=== PATIENT | male | born 1950 | race Caucasian/White ===

== ENCOUNTER 2020-12-11 11:24 | Emergency (ER) | payer MEDICARE, SELFPAY ==
--- NOTE | ~2020-12-11 | XR_ITS ---
EXAMINATION: XR shoulder LT min 2V DATE: 12/11/2020 11:48 INDICATION: Generalized left shoulder pain 4 days after using a saw. TECHNIQUE: AP internally and externally rotated, AP oblique externally rotated and axillary views of the left shoulder were obtained. COMPARISON: None FINDINGS: Normal alignment. No fracture. Mild glenohumeral and acromioclavicular osteoarthritis. Severe lower cervical spondylosis. Soft tissues are unremarkable. Visual is portions of the lungs are clear. IMPRESSION: 1. Mild left glenohumeral and acromioclavicular osteoarthritis. No acute osseous abnormality. 2. Severe lower cervical spondylosis. Reviewed, dictated and finalized at location B. IMPRESSION: 1. Mild left glenohumeral and acromioclavicular osteoarthritis. No acute osseou s abnormality. 2. Severe lower cervical spondylosis.
[2020-12-11 11:37] VITALS: BP 182/91; PULSE 61; RESP 16; TEMP 36.6; O2SAT 99
--- NOTE | 2020-12-11 11:59 | ED.UPPEXIN ---
HPI - Extremity Injury (Upper) General Chief Complaint: Extremity Injury, Upper Stated Complaint: lt shoulder injury Time Seen by Provider: 12/11/20 12:00 Source: patient, RN notes reviewed and old records reviewed Mode of arrival: ambulatory Limitations: no limitations History of Present Illness HPI narrative: 70 year old male who presents to [facility] care with complaints of severe left shoulder pain which started at 3 in the morning of Friday. Patient states that on he was holding a tree branch with his left arm and was using a chain saw with his right hand for about 2 hours cutting a limb out of tree, he cut up the wood and put it in the back yard. Patient states that he woke up with severe left shoulder pain at 3am on Friday. Patient states that he has been taking Ibuprofen and he had 5 [place] tabs left from dental procedure that he has taken for the pain and has been applying ice to his left shoulder. Patient has history of arthritis and was on Methotrexate at one time but is no longer on this medication. MD complaint: injury to: left Onset (ago): day(s) (4) Other Extremity Injury: Left: shoulder Other injuries: none Handedness: right Place: home Severity: severe Severity scale (1-10): 10 Relieving factors: other ([place] helped some) Context: other (cutting tree branch) Associated symptoms: denies other symptoms Treatments prior to arrival: cold therapy, NSAIDS and other (left over [place]) Related Data Home Medications Medication Instructions Recorded Confirmed celecoxib 100 mg capsule 100 mg PO DAILY 01/11/20 07/26/20 Allergies Allergy/AdvReac Type Severity Reaction Status Date / Time No Known Allergies Allergy Unknown Verified 12/11/20 11:37 Review of Systems Review of Systems: Narrative: CONSTITUTIONAL: Denies fever, chills, or sweats. EYES: Denies visual changes, redness, or discharge. ENT: Denies rhinorrhea, congestion, sore throat, or otalgia. CARDIOVASCULAR: Denies chest pain, palpitations, or edema. RESPIRATORY: Denies cough or dyspnea. GASTROINTESTINAL: Denies abdominal pain, nausea, vomiting, or diarrhea. GENITOURINARY: Denies dysuria or hematuria. SKIN: Positive for areas of psoriasis on body with itching. MUSCULOSKELETAL: Chronic neck and lower back pain, positive left shoulder pain. NEUROLOGIC: Denies headache, numbness, or weakness. PSYCHIATRIC: Denies anxiety or depression. All systems reviewed & are unremarkable except as noted in HPI and below PMFSH Past Medical History Medical History (Updated 12/11/20 @ 12:37 by Amelia Rothman NP) Allergies Hypertension Hypothyroidism Screening, lipid Surgical History Surgical History (Updated 12/11/20 @ 12:23 by Amelia Rothman NP) History of tonsillectomy Hx of right inguinal hernia repair S/P appy Family History Family History Mother , Age 72 from Pneumonia Arthritis Lupus Father , Age 89 Natural Causes Hypertension Grandparent , Age 95 Natural Causes Arthritis Grandparent , Age 93 Natural Causes No problems noted. Grandparent , Age 84 Natural Causes Arthritis Grandparent , Age 93 Natural Causes Arthritis Social History Social History (Updated 12/11/20 @ 12:24 by Amelia Rothman NP) Smoking status: Never smoker Alcohol intake: former Substance use: never Living arrangements: alone Gender identity (if verbalized by the patient): Male Comments At time of signature, agree with nursing past medical, surgical, social and family history. There is no relevant family history pertinent to the presenting complaint Exam Narrative: Exam Narrative: GENERAL: Well-appearing, well-nourished, and in no acute distress. HEAD: Normocephalic, atraumatic. EYES: PERRLA and EOMI. ENT: Nares clear, no rhinorrhea or epistaxis. Mucous membranes moist.
== END 2020-12-11 12:20 | disposition home or self-care (01) ==
PROVIDERS: Emergency Provider Registered Nurse; PCP Internal Medicine
DX: M25.512 Pain in left shoulder (principal); M19.012 Primary osteoarthritis, left shoulder; M47.812 Spondylosis without myelopathy or radiculopathy, cervical region; I10 Essential (primary) hypertension; E03.9 Hypothyroidism, unspecified
CPT/HCPCS: 73030; 99213; G0463

== ENCOUNTER 2022-03-20 10:16 | Outpatient (CLI) | payer MEDICARE, SELFPAY ==
[2022-03-20 10:36] LABS: Hemoglobin 13.1 g/dL (14.0-18.0); Mean Corpuscular HGB Conc 34.5 g/dl (32-36); Mean Corpuscular Volume 92.9 fl (80-100); Mean Platelet Volume 8.6 fl (7.4-10.4); Platelet Count Result 372 k/mm3 (150-375); Red Blood Count 4.09 M/mm3 (4.6-6.20); Red Cell Distribution Width 12.2 % (11.5-14.5); White Blood Count 5.9 K/mm3 (4.5-10.0)
[2022-03-20 10:55] LABS: Alanine Aminotransferase 38 U/L (6-50); Albumin Level 3.6 g/dL (3.5-5.1); Alkaline Phosphatase 93 U/L (38-126); Anion Gap 2 mmol/L (8-16); Aspartate Amino Transferase 40 U/L (17-59); Bilirubin,Total 0.3 mg/dL (0.2-1.3); Blood Urea Nitrogen 11 mg/dL (9-20); CRP < 0.5 mg/dL (<1.0); Calcium 8.6 mg/dL (8.4-10.2); Carbon Dioxide 33 mmol/L (22-30); Chloride 105 mmol/L (98-107); Estimated Glomerular Filt Rate > 60; Glucose 98 mg/dL (65-110); Potassium 3.8 mmol/L (3.4-5.0); Sodium 140 mmol/L (137-145)
[2022-03-20 11:21] LABS: Erythrocyte Sedimentation Rate 17 mm/hr (0-20)
[2022-03-21 21:31] LABS: Free T4 Free Thyroxine Reflex 1.21 ng/dL (0.78-2.19)
[2022-03-21 23:34] LABS: Total Triiodothyronine (T3) 1.07 NG/ML (0.97-1.69)
[2022-03-25 18:32] LABS: Tissue Transglutaminase IgG Ab <1.0 U/mL (<15.0)
[2022-03-25 19:42] LABS: Tissue Transglutaminase IgA Ab <1.0 U/mL (<15.0)
[2022-03-27 19:17] LABS: Calprotectin, Stool 19 mcg/g
== END 2022-03-20 10:17 | disposition home or self-care (01) ==
PROVIDERS: PCP Family Medicine; Visit Provider Nurse Practitioner
DX: R19.7 Diarrhea, unspecified (principal)
CPT/HCPCS: 36415; 80053; 83516; 83993; 84439; 84443; 84480; 85027; 85652; 86140; 87045; 87177; 87209; 87269; 87427

== ENCOUNTER 2022-03-25 08:34 | Outpatient (CLI) | payer MEDICARE, SELFPAY ==
[2022-03-25 09:36] LABS: Iron 111 ug/dL (49-181)
[2022-03-25 09:45] LABS: Percent Iron Saturation 38 % (20-50)
[2022-03-25 10:20] LABS: Folic Acid > 20.0 ng/mL (2.76->20)
== END 2022-03-25 08:35 | disposition home or self-care (01) ==
PROVIDERS: PCP Family Medicine; Visit Provider Nurse Practitioner
DX: D64.9 Anemia, unspecified (principal); R53.1 Weakness; R20.0 Anesthesia of skin
CPT/HCPCS: 36415; 82607; 82728; 82746; 83540; 83550

== ENCOUNTER 2022-04-03 09:58 | Outpatient (CLI) | payer MEDICARE, SELFPAY ==
--- NOTE | 2022-04-03 11:30 | NEURO_ITS ---
Impression: # Complains of right upper extremity pain. # No Carpal Tunnel Syndrome. # No ulnar neuropathy. # Normal needle/EMG exam. Nerve Conduction Studies Anti Sensory Summary Table Stim Site NR Peak (ms) P-T Amp (?V) Site1 Site2 Delta-P (ms) Dist (cm) Wiley (m/s) Right Median Anti Sensory (2-3nd Digit) Wrist 3.4 22.7 Wrist 2-3nd Digit 3.4 14.0 41 Wrist 3.4 22.3 Wrist 2-3nd Digit 3.4 14.0 41 Right Radial Anti Sensory (Base 1st Digit) Wrist 2.6 13.7 Wrist Base 1st Digit 2.6 0.0 Right Ulnar Anti Sensory (5th Digit) Wrist 2.6 18.8 Wrist 5th Digit 2.6 14.0 54 Motor Summary Table Stim Site NR Onset (ms) O-P Amp (mV) Site1 Site2 Delta-0 (ms) Dist (cm) Wiley (m/s) Right Median Motor (Abd Poll Brev) Wrist 3.6 2.1 Elbow Wrist 4.8 29.0 60 Elbow 8.4 3.5 Right Ulnar Motor (Abd Dig Minimi) Wrist 2.6 5.2 A Elbow Wrist 5.0 28.0 56 A Elbow 7.6 4.5 F Wave Studies NR F-Lat (ms) L-R F-Lat (ms) Right Median (Mrkrs) (Abd Poll Brev) 29.32 Right Ulnar (Mrkrs) (Abd Dig Min) 29.15 EMG Side Muscle Nerve Root Ins Act Fibs Amp Dur Recrt Comment Right 1stDorInt Ulnar C8-T1 Nml Nml Nml Nml Nml Right Ext Indicis Radial (Post Int) C7-8 Nml Nml Nml Nml Nml Right Ext Digitorum Radial (Post Int) C7-8 Nml Nml Nml Nml Nml Right BrachioRad Radial C5-6 Nml Nml Nml Nml Nml Right PronatorTeres Median C6-7 Nml Nml Nml Nml Nml Right Abd Poll Brev Median C8-T1 Nml Nml Nml Nml Nml Right ABD Dig Min Ulnar C8-T1 Nml Nml Nml Nml Nml MTDD
== END 2022-04-03 09:59 | disposition home or self-care (01) ==
LOC: ANHNEURO 09:59
PROVIDERS: PCP Family Medicine; Visit Provider Internal Medicine
DX: R53.1 Weakness (principal); R20.0 Anesthesia of skin
CPT/HCPCS: 95886; 95909

== ENCOUNTER 2022-04-29 10:33 | Outpatient (CLI) | payer MEDICARE, SELFPAY ==
[2022-04-29 11:21] LABS: Hematocrit 41.2 % (42.0-52.0); Hemoglobin 13.9 g/dL (14.0-18.0); Mean Corpuscular HGB Conc 33.7 g/dl (32-36); Mean Corpuscular Hemoglobin 32.3 pg (26-34); Mean Corpuscular Volume 95.6 fl (80-100); Mean Platelet Volume 9.3 fl (7.4-10.4); Platelet Count Result 288 k/mm3 (150-375); Red Blood Count 4.31 M/mm3 (4.6-6.20); Red Cell Distribution Width 12.5 % (11.5-14.5); White Blood Count 7.2 K/mm3 (4.5-10.0)
== END 2022-04-29 10:34 | disposition home or self-care (01) ==
PROVIDERS: PCP Family Medicine; Visit Provider Nurse Practitioner
DX: D64.9 Anemia, unspecified (principal)
CPT/HCPCS: 36415; 85027

== ENCOUNTER 2022-06-18 00:25 | Day surgery (SDC) | payer MEDICARE, SELFPAY ==
[2022-06-06 13:49] VITALS: BMI 17.4
[2022-06-18 07:35] VITALS: BP 141/83; PULSE 71; RESP 17; TEMP 36.1; O2SAT 100
[2022-06-18] MEDS: LACTATED RINGERS 1,000 ML 150 ML IV CONT (07:43)
--- NOTE | 2022-06-18 08:03 | WPDANESEPPF ---
Anes - Initial Pre Proc Eval Procedure: Operation Date: 06/18/22 08:30 Proposed Procedures p Colonoscopy - Mannie Henry MD Date/Time: 06/18/22 08:03 Surgeon: Mannie Henry MD Pre Op Diagnosis: diarrhea Patient Data Age: 72 Gender: M Height: 1.75 m Weight: 53.9 kg Last Vital Signs Temp 97 F L 06/18/22 07:35 Pulse 71 06/18/22 07:35 Resp 17 06/18/22 07:35 BP 141/83 H 06/18/22 07:35 Pulse Ox 100 06/18/22 07:35 O2 Del Method Room Air 06/18/22 07:35 Allergies Allergy/AdvReac Type Severity Reaction Status Date / Time No Known Allergies Allergy Unknown Verified 06/18/22 07:34 Home Medications Medication Instructions Recorded Confirmed Type amlodipine 10 mg tablet 10 mg PO DAILY #90 tabs 12/03/21 06/06/22 Rx sildenafil 100 mg tablet (Viagra) 100 mg PO DAILY PRN sexual 02/14/22 06/06/22 Rx activity #30 tabs gabapentin 300 mg capsule 300 mg PO DAILY #90 caps 05/21/22 06/06/22 Rx valacyclovir 1 gram tablet 1,000 mg PO BID PRN Cold Sores 06/06/22 06/06/22 History levothyroxine 100 mcg tablet 100 mcg PO DAILY #90 tabs 06/14/22 06/18/22 Rx Patient hx anesthesia problems: none Family hx anesthesia problems: none Results Review: All pre-operative results and documents have been reviewed as part of the pre-operative evaluation. [facility] Past Medical History Medical History (Updated 04/29/22 @ 10:28 by Michelle Sánchez APRN) Allergies Hypertension Hypothyroidism Lactose intolerance Normocytic anemia Normocytic anemia Screening, lipid Surgical History Surgical History History of tonsillectomy Hx of right inguinal hernia repair S/P appy Family History Family History Mother , Age 72 from Pneumonia Arthritis Lupus Father , Age 89 Natural Causes Hypertension Grandparent , Age 95 Natural Causes Arthritis Grandparent , Age 93 Natural Causes No problems noted. Grandparent , Age 84 Natural Causes Arthritis Grandparent , Age 93 Natural Causes Arthritis Social History Social History Smoking status: Never smoker Alcohol intake: former Alcohol use details: Has a beer occasionally Substance use: never Substance use type: does not use Living arrangements: alone Gender identity (if verbalized by the patient): Male Spiritual care concerns: No Anes - Eval Final PreProcedure Day of Procedure 06/18/22 08:03 Patient weight: normal Heart: regular rate and rhythm Lungs: clear to auscultation Airway: Mallampati scale class II Neurological: alert and oriented Last oral intake: >/= 8 hours ASA classification: II Emergent: no Anesthetic plan: proceed Anesthesia type and monitoring: general GIVS and standard monitoring Results Review: All pre-operative results and documents have been reviewed as part of the pre-operative evaluation. Informed Consent: The patient's anesthetic plan and its attendant risks and benefits were discussed with the patient/family/POA. Questions were solicited and answers provided to the satisfaction of the patient/family/POA.
--- NOTE | 2022-06-18 08:31 | PM.HPGS ---
History of Present Illness History of Present Illness Consent: Risks, benefits, and alternatives have been discussed and questions answered. Patient agrees to proceed with procedure. Chief complaint: diarrhea Narrative: Maikol Boston is a 72 year old male with diarrhea, briefly used budesonide empirically with some improvement, serology for celiac negative. Last colonoscopy 2013 Review of Systems Constitutional: Constitutional: Denies headache(s) and Denies weakness Eyes: Eyes: Denies blurry vision ENT: Reports Normal hearing present, Denies headache(s) and Denies neck pain Cardiovascular: Cardiovascular: Denies chest pain and Denies dyspnea Respiratory: Respiratory: Denies dyspnea Gastrointestinal: Gastrointestinal: Reports no additional gastrointestinal complaints Genitourinary: Genitourinary: Denies dysuria Musculoskeletal: Musculoskeletal: Denies neck pain Integumentary/Breasts: Skin/Breast: Denies dry skin Neurologic: Reports Normal hearing present, Denies headache(s) and Denies weakness Psychiatric: Psychiatric: Denies anxiety Endocrine: Endocrine: Denies change in body appearance Hematologic/Lymphatic: Hematologic/Lymphatic: Denies easy bleeding Allergic/Immunologic: Allergic/Immunologic: Denies urticaria PMFSH Past Medical History Medical History (Updated 06/18/22 @ 08:32 by Mannie Henry MD) Allergies Chronic diarrhea Hypertension Hypothyroidism Lactose intolerance Normocytic anemia Normocytic anemia Screening, lipid Surgical History Surgical History History of tonsillectomy Hx of right inguinal hernia repair S/P appy Family History Family History Mother , Age 72 from Pneumonia Arthritis Lupus Father , Age 89 Natural Causes Hypertension Grandparent , Age 95 Natural Causes Arthritis Grandparent , Age 93 Natural Causes No problems noted. Grandparent , Age 84 Natural Causes Arthritis Grandparent , Age 93 Natural Causes Arthritis Social History Social History Smoking status: Never smoker Alcohol intake: former Alcohol use details: Has a beer occasionally Substance use: never Substance use type: does not use Living arrangements: alone Gender identity (if verbalized by the patient): Male Spiritual care concerns: No Meds Home Medications and Allergies Home Medications Medication Instructions Recorded Confirmed Type amlodipine 10 mg tablet 10 mg PO DAILY #90 tabs 12/03/21 06/06/22 Rx sildenafil 100 mg tablet (Viagra) 100 mg PO DAILY PRN sexual 02/14/22 06/06/22 Rx activity #30 tabs gabapentin 300 mg capsule 300 mg PO DAILY #90 caps 05/21/22 06/06/22 Rx valacyclovir 1 gram tablet 1,000 mg PO BID PRN Cold Sores 06/06/22 06/06/22 History levothyroxine 100 mcg tablet 100 mcg PO DAILY #90 tabs 06/14/22 06/18/22 Rx Allergies Allergy/AdvReac Type Severity Reaction Status Date / Time No Known Allergies Allergy Unknown Verified 06/18/22 07:34 Vital Signs Vital Signs - 24 hr 06/18/22 07:35 Temperature 97 F L Pulse Rate 71 Respiratory Rate 17 Blood Pressure 141/83 H Pulse Oximetry 100 Oxygen Delivery Room Air Exam Const: General: comfortable and no acute distress HENMT: Face/Nose/Sinus: Normal nares present Eyes: General: appearance normal, both eyes and all related structures Neck: Neck: no JVD Resp: Auscultation: clear to auscultation bilaterally Cardio: Rate: regular rate Rhythm: regular rhythm GI: Inspection: non-distended GI Palp: Yes Soft to palpation Skin: General skin exam: normal color Neuro: General: gait normal Speech: normal speech Extrem: General: normal to inspection Psych: Mental Status: ment
--- NOTE | 2022-06-18 08:50 | SUR.OPER ---
Transverse colon polyp not retrieved Dr. Santana notified.
[2022-06-18 08:53] VITALS: BP 117/73; PULSE 66; RESP 17; O2SAT 100
[2022-06-18 09:03] VITALS: BP 145/92; PULSE 63; RESP 19; O2SAT 100
[2022-06-18 09:13] VITALS: BP 127/99; PULSE 63; RESP 17; O2SAT 100
== END 2022-06-18 09:23 | disposition home or self-care (01) ==
PROVIDERS: PCP Family Medicine; Visit Provider Internal Medicine Gastroenterology
PROC: 0DJD8ZZ Inspection of Lower Intestinal Tract, Via Natural or Artificial Opening Endoscopic (ICD-10-PCS; CPT 45378; principal; 2022-06-18 08:30)
DX: Z12.11 Encounter for screening for malignant neoplasm of colon (principal); K64.8 Other hemorrhoids; K52.9 Noninfective gastroenteritis and colitis, unspecified; K62.89 Other specified diseases of anus and rectum; D64.9 Anemia, unspecified; E03.9 Hypothyroidism, unspecified; E73.9 Lactose intolerance, unspecified
CPT/HCPCS: 45385; 45380; 88305; J2704; J7120

== ENCOUNTER 2022-07-09 08:34 | Outpatient (CLI) | payer MEDICARE, SELFPAY ==
[2022-07-09 19:53] LABS: Alanine Aminotransferase 21 U/L (6-50); Albumin Level 4.4 g/dL (3.5-5.1); Alkaline Phosphatase 87 U/L (38-126); Anion Gap 14 mmol/L (8-16); Aspartate Amino Transferase 25 U/L (17-59); Bilirubin,Total 0.5 mg/dL (0.2-1.3); Blood Urea Nitrogen 18 mg/dL (9-20); Carbon Dioxide 26 mmol/L (22-30); Chloride 102 mmol/L (98-107); Cholesterol 185 mg/dL (0-200); Estimated Glomerular Filt Rate > 60; Glucose 94 mg/dL (65-110); HDL Direct 42 mg/dL; Potassium 3.6 mmol/L (3.4-5.0); Sodium 142 mmol/L (137-145); Triglycerides 170 mg/dL (<150)
[2022-07-09 20:05] LABS: LDL Cholesterol Direct 106 mg/dL
== END 2022-07-09 08:35 | disposition home or self-care (01) ==
LOC: ANHGOSHLAB 08:37
PROVIDERS: PCP Family Medicine; Visit Provider Family Medicine
DX: E03.9 Hypothyroidism, unspecified (principal); Z13.220 Encounter for screening for lipoid disorders; I10 Essential (primary) hypertension
CPT/HCPCS: 36415; 80053; 80061; 84443

== ENCOUNTER → 2022-07-25 13:04 | Outpatient (CLI) | payer MEDICARE, SELFPAY ==
--- NOTE | ~2022-07-25 | XR_ITS ---
XR hand RT min 3V DATE: 07/25/2022 13:18 INDICATION: Hand pain. Unable to extend third and fourth digits TECHNIQUE: 3 views COMPARISON: None FINDINGS: There is prominent ulnar invagination of the radius at the radial ulnar joint and prominent invagination of the navicular bone and apparently the lunate at the radius at the radiocarpal joint. CT right wrist would be helpful for more definitive evaluation of the carpal bones. There is osteoarthritis at the first carpometacarpal joint. There is prominent joint space narrowing and lateral subluxation at the interphalangeal joint of the first digit. No recent fracture or dislocation is evident. No periosteal reaction or bone destruction. No erosive change or chondrocalcinosis is evident. 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 [employer]MER IMPRESSION: Abnormal chronic invagination of the radial ulnar and radiocarpal j oints; consider CT right wrist examination for better definition Osteophyte is at first carpometacarpal joint Osteoarthritis and lateral subluxation at the interphalangeal joint of the firs t digit
== END ==
PROVIDERS: PCP Family Medicine; Visit Provider Family Medicine
DX: M19.041 Primary osteoarthritis, right hand (principal)
CPT/HCPCS: 73130

== ENCOUNTER 2023-07-14 08:21 | Outpatient (CLI) | payer MEDICARE, SELFPAY ==
[2023-07-14 20:07] LABS: Basophils Absolute Auto 0.1 K/mm3 (0.0-0.1); Basophils Percent Auto 0.7 % (0.2-1.2); Eosinophils Absolute Auto 0.3 K/mm3 (0-0.3); Hemoglobin 15.1 g/dL (14.0-18.0); Immature Granulocyte Absolute 0.01 K/mm3 (0.00-0.031); Immature Granulocyte Percent A 0.1 % (0-0.5); Lymphocytes Absolute Auto 1.69 K/mm3 (0.9-3.2); Lymphocytes Percent Auto 24.9 % (18.3-44.2); Mean Corpuscular HGB Conc 32.8 g/dl (32-36); Mean Corpuscular Hemoglobin 31.4 pg (26-34); Mean Corpuscular Volume 95.6 fl (80-100); Mean Platelet Volume 10.5 fl (7.4-10.4); Monocytes Absolute Auto 0.6 K/mm3 (0.1-0.6); Monocytes Percent Auto 8.1 % (2.6-8.5); Neutrophils Absolute Auto 4.2 K/mm3 (1.3-6.7); Neutrophils Percent Auto 61.2 % (45.5-73.1); Platelet Count Result 284 k/mm3 (150-375); Red Blood Count 4.81 M/mm3 (4.6-6.20); Red Cell Distribution Width 12.6 % (11.5-14.5); White Blood Count 6.8 K/mm3 (4.5-10.0)
[2023-07-14 21:08] LABS: Alanine Aminotransferase 20 U/L (6-50); Albumin Level 4.3 g/dL (3.5-5.1); Alkaline Phosphatase 79 U/L (38-126); Anion Gap 7 mmol/L (8-16); Aspartate Amino Transferase 31 U/L (17-59); Bilirubin,Total 0.7 mg/dL (0.2-1.3); Blood Urea Nitrogen 16 mg/dL (9-20); Carbon Dioxide 30 mmol/L (22-30); Chloride 100 mmol/L (98-107); Cholesterol 200 mg/dL (0-200); Estimated Glomerular Filt Rate > 60; Glucose 93 mg/dL (65-110); HDL Direct 57 mg/dL; Potassium 3.9 mmol/L (3.4-5.0); Sodium 137 mmol/L (137-145); Triglycerides 129 mg/dL (<150)
[2023-07-14 21:18] LABS: LDL Cholesterol Direct 108 mg/dL
[2023-07-14 23:02] LABS: Hemoglobin A1C 5.1 % (<5.7)
== END 2023-07-14 08:22 | disposition home or self-care (01) ==
LOC: ANHGOSHLAB 08:22
PROVIDERS: PCP Family Medicine; Visit Provider Family Medicine
DX: E03.9 Hypothyroidism, unspecified (principal); R73.01 Impaired fasting glucose; Z13.220 Encounter for screening for lipoid disorders; Z13.228 Encounter for screening for other metabolic disorders; R53.83 Other fatigue
CPT/HCPCS: 36415; 80053; 80061; 83036; 84443; 85025

== ENCOUNTER 2024-05-17 09:16 | Outpatient (CLI) | payer MEDICARE, SELFPAY ==
--- NOTE | ~2024-05-17 | US_ITS ---
COMPLETE ABDOMINAL ULTRASOUND Ordering provider: Mannie Henry MD History: . R10.9 - Unspecified abdominal pain . Comparison: None. FINDINGS: LIVER: Normal size and echotexture. No focal hepatic lesions or perihepatic fluid collections are kathleen ntified. Normal flow of the portal vein. GALLBLADDER: Polyps are noted measuring 0.2 x 0.2 x 0.2 cm.. No evidence for stones, sludge, gallblad sondra wall thickening or pericholecystic fluid collections. The wall of the gallbladder measures 0.2 ce ntimeter.. A negative sonographic Krishnan's sign was noted. BILIARY DUCTS: No evidence for intra or extrahepatic biliary dilation. Common bile duct measures 2 mm in diameter which is within normal limits. Extrahepatic CBD measures 6.7 mm. PANCREAS: Normal echotexture and size. SPLEEN: Normal size, echotexture and contour and measures 11.3 cm in length. KIDNEYS: Right measures 9.5x 4x 5.6 cm in length and the left 10.5x 4.9x 5.6 cm in length. There is n o evidence for hydronephrosis, solid renal mass, renal calculi or perinephric fluid collections. No r enal cysts. UPPER ABDOMINAL AORTA: Minimal plaquing in the distal aorta. Normal in caliber. IVC: Patent. FREE FLUID: None. IMPRESSION: Gallbladder polyps. Atherosclerotic changes of the distal aorta. Otherwise, Unremarkable complete ult rasound of the abdomen. Reviewed, dictated and finalized at location A. IMPRESSION: Gallbladder polyps. Atherosclerotic changes of the distal aorta. Otherwise, Unr emarkable complete ultrasound of the abdomen.
== END 2024-05-17 09:17 | disposition home or self-care (01) ==
PROVIDERS: PCP Family Medicine; Visit Provider Internal Medicine Gastroenterology
DX: K82.4 Cholesterolosis of gallbladder (principal)
CPT/HCPCS: 76700

== ENCOUNTER 2024-05-19 07:02 | Outpatient (NON) | payer MEDICARE, SELFPAY | END 2024-05-19 07:03 | disposition home or self-care (01) | LOC: ANHLAB 05-20 07:05 | PROVIDERS: PCP Family Medicine; Visit Provider Internal Medicine Gastroenterology | DX: K29.80 Duodenitis without bleeding (principal) | CPT/HCPCS: 88305 ==

== ENCOUNTER 2024-05-19 07:35 | Day surgery (SDC) | payer MEDICARE, SELFPAY ==
[2024-04-29 10:05] VITALS: BMI 18.3
[2024-05-05 13:49] VITALS: BMI 17.7
--- NOTE | 2024-05-18 13:06 | WPDANESEPPF ---
Anes - Initial Pre Proc Eval Procedure: Operation Date: 05/19/24 10:00 Proposed Procedures p Esophagogastroduodenoscopy - Davin Muro MD Date/Time: 05/18/24 13:06 Surgeon: Davin Muro MD Pre Op Diagnosis: Eructation, Noninfective Gastroenteritis & Colitis Patient Data Age: 74 Gender: M Height: 1.75 m Weight: 54.5 kg Allergies Allergy/AdvReac Type Severity Reaction Status Date / Time No Known Allergies Allergy Unknown Verified 05/19/24 08:36 Home Medications Medication Instructions Recorded Confirmed Type valacyclovir 1 gram tablet 1,000 mg PO BID PRN Cold Sores 06/06/22 05/05/24 History sildenafil 100 mg tablet (Viagra) 100 mg PO DAILY PRN sexual 01/06/23 05/05/24 Rx activity #30 tabs amlodipine 10 mg tablet 10 mg PO DAILY #90 tabs 12/01/23 05/05/24 Rx gabapentin 300 mg capsule 300 mg PO DAILY #90 caps 02/23/24 05/05/24 Rx levothyroxine 100 mcg tablet 100 mcg PO DAILY #90 tabs 03/05/24 05/19/24 Rx ibuprofen 400 mg PO Q6-8H PRN Pain 05/05/24 05/05/24 History Patient hx anesthesia problems: none Family hx anesthesia problems: none Results Review: All pre-operative results and documents have been reviewed as part of the pre-operative evaluation. [facility] Past Medical History Medical History Abdominal cramping Allergies Chronic diarrhea Colon polyp Cryptitis, colonic Functional burping disorder Hypertension Hypothyroidism Lactose intolerance Normocytic anemia Normocytic anemia Screening, lipid Surgical History Surgical History History of tonsillectomy Hx of right inguinal hernia repair S/P appy Family History Family History Mother , Age 72 from Pneumonia Arthritis Lupus Father , Age 89 Natural Causes Hypertension Grandparent , Age 95 Natural Causes Arthritis Grandparent , Age 93 Natural Causes No problems noted. Grandparent , Age 84 Natural Causes Arthritis Grandparent , Age 93 Natural Causes Arthritis Social History Social History Smoking status: Never smoker Alcohol intake: never Alcohol use details: Has a beer occasionally Substance use: never Substance use type: does not use Lack of Transportation: No Lack of Food: Never True Current Housing: I Have Housing Concerned About Future Housing: No Difficulty Paying Gas/Electric Bills: No Difficulty Paying for Meds: No Currently Unemployed: No Education: Trade/Vocational Certificate Difficulty w/ Childcare or Family Care: No Living arrangements: alone Occupation/Education: retired Gender identity (if verbalized by the patient): Male Spiritual care concerns: No Anes - Eval Final PreProcedure Day of Procedure 05/18/24 13:06 Patient weight: normal Heart: regular rate and rhythm Lungs: clear to auscultation and normal air movement Airway: Mallampati scale class II Neurological: alert and oriented Last oral intake: >/= 8 hours ASA classification: II Emergent: no Anesthetic plan: proceed Anesthesia type and monitoring: general GIVS and standard monitoring Results Review: All pre-operative results and documents have been reviewed as part of the pre-operative evaluation. Informed Consent: The patient's anesthetic plan and its attendant risks and benefits were discussed with the patient/family/POA. Questions were solicited and answers provided to the satisfaction of the patient/family/POA.
[2024-05-19 08:40] VITALS: BP 146/85; PULSE 65; RESP 16; TEMP 36.4; O2SAT 100; BMI 17.9
--- NOTE | 2024-05-19 08:49 | WPDHPUPDATE1 ---
History and Physical Update Update Date/Time: 05/19/24 08:49 History and Physical has been reviewed, including an updated exam of the patient. There are NO changes in the patient's condition. Risks, benefits, and alternatives have been discussed and questions answered. Patient agrees to proceed with procedure.
[2024-05-19] MEDS: LACTATED RINGERS 1,000 ML 150 ML IV CONT (08:55)
[2024-05-19 09:19] VITALS: BP 108/76; PULSE 67; RESP 12; O2SAT 98
[2024-05-19 09:29] VITALS: BP 113/77; PULSE 59; RESP 16; O2SAT 98
[2024-05-19 09:39] VITALS: BP 113/57; PULSE 66; RESP 20; O2SAT 100
--- NOTE | 2024-05-19 09:57 | WPDANESPN ---
Anes - Prog Note Post-Op Date/Time: 05/19/24 09:57 Cardiovascular status: normal Respiratory status: normal Airway patency: baseline Mental status: baseline Post-Op hydration status: normal Vital Signs: Last Vital Signs Temp 36.4 C L 05/19/24 08:40 Pulse 66 05/19/24 09:39 Resp 20 05/19/24 09:39 BP 113/57 L 05/19/24 09:39 Pulse Ox 100 05/19/24 09:39 O2 Del Method Room Air 05/19/24 09:39 Pain Score (VAS): 0 I/O: Intake & Output 05/18/24 05/19/24 05/19/24 23:59 07:59 15:59 Intake Total 250 Balance 250 Post-procedural complaints: none Patient Feedback: Patient satisfied with anesthetic care. Other Findings: Patient vital signs back to baseline. Patient denies nausea and vomiting. Patient's pain under control. Patient OK for discharge.
== END 2024-05-19 09:47 | disposition home or self-care (01) ==
PROVIDERS: PCP Family Medicine; Visit Provider Internal Medicine Gastroenterology
PROC: 0DJ08ZZ Inspection of Upper Intestinal Tract, Via Natural or Artificial Opening Endoscopic (ICD-10-PCS; CPT 43235; principal; 2024-05-19 10:00)
DX: R10.84 Generalized abdominal pain (principal); R14.0 Abdominal distension (gaseous); K59.1 Functional diarrhea
CPT/HCPCS: 43239

== ENCOUNTER 2024-09-03 10:34 | Outpatient (CLI) | payer MEDICARE, SELFPAY ==
[2024-09-03 12:40] LABS: Free T4 Free Thyroxine 1.46 ng/dL (0.78-2.19)
== END 2024-09-03 10:35 | disposition home or self-care (01) ==
LOC: ANHGOSHLAB 10:35
PROVIDERS: PCP Family Medicine; Visit Provider Family Medicine
DX: E03.9 Hypothyroidism, unspecified (principal)
CPT/HCPCS: 36415; 84439; 84443

== ENCOUNTER 2025-07-14 09:16 | Outpatient (CLI) | payer MEDICARE, SELFPAY ==
--- OUTSIDE RECORDS SUMMARY | 2016-12-25 04:30 | XMS_ITS | Continuity of Care Document ---
Author Organization [facility] Address [address] [facility] [address] [facility] [address] [place] [address] Phone Care Team Providers Care Clutch Specialist Name Role Phone Tavon Mayberry MD, MD Unavailable Unavail able Allergies, Adverse Reactions, Alerts Substance Reaction Status Criticality No Known Allergies Active No Inform ation Medications Medication Instructions Dosage Effective Dates (start - stop) Status Comments ibuprofen 100 mg tablet - Active Celebrex 50 mg capsule - Active levothyroxine 25 mcg tablet - Ac tive Procedures Procedure Date [facility] Advance Directives Directive Yes / No Effective Date File Name No Information Encounters Encounter Description Practice Location Reason(s) For Visit Diagnoses Date Provider Providers Copied on Encounter Office consultation , [facility], [address], [id number], tel:[phone] [facility] hand (chief complaint) wrist (chief complaint) Other specified arthritis, right wristOther specified arthritis, left wristSprain of interphalangeal joint of right thumb, sequela [address] [address], [place], [place], [id number], [place]. tel:[phone] Family History Family Member Type Diagnosis Age At Onset Mother Problem (finding) Diabetes mellitus Mother Problem (finding) Arthritis Problem (finding) Family history of Thyro id trouble Payers Payer name Insurance type Covered alliance party ID Authoriza tion(s) Aetna Medicare CI [id number] Social History Type Description Quantity Date Captured Comments Alcohol Use Details No Caffeine Use Details Unknown Tobacco Use Status No Information Smoking Status No Information Sex Male Vital Signs Date / Time: Height Weight BMI Pulse Rate Blood Pressure Temperature Respiratory Rate Body Surface Area Head Circumference Head Circ. Percentile Wt./Wm. Percentile BMI percentile Pulse Ox Inhaled Ox 10:15 AM 69.00 in 61.235 kg (135.00 lbs) 19.9 4 kg/m eter (2) Chief Complaint And Reason For Visit From encounter dated '12/25/2016 10:30'. hand (chief complaint). Description: Maikol Boston is a 66 year old male. He presents to the office today on December 25, 2016 because of pain and instability of the right thumb interphalangeal joint. Hedoes not recall any specific injury. He reports that he has had pain since he was a teenager. He also relates to me that he has a history of psoriatic arthritis. He has difficulty with gripping. There is no triggering. There is no numbness or tingling. wrist (chief complaint). Description: Maikol Boston is a 66 year old male. Maikol also describes pain in both wrists. He has taken Celebrex, but it does not seem to help much. I reviewed x-rays of the left and right hands from December 12, 2016. The x-rays show severe erosive arthropathy of both wristswith severe joint space narrowing and subchondral cyst formation bilaterally. Subluxation of the distal phalanx of the right thumb is also seen. Maikol is seen today in consultation at the request of Dr. Wilfrid Godfrey. Reason For Referral Reason For Referral No Information History Of Present Illness Encounter Date Complaint History Of Prese nt Illness hand Maikol Boston is a 66 year old male. He presents to the office today on December 25, 2016 because of pain and instability of the right thumb interphalangeal joint. He does not recall any specific injury. He reports that he has had pain since he was a teenager. He also relates to me that he has a history of psoriatic arthritis. He has difficulty with gripping. There is no triggering. There is no numbness or tingling. wrist Maikol Boston is a 66 year old male. Maikol also describes pain in both wrists. He has taken Celebrex, but it does not seem to help much. I reviewed x-rays of the left and right hands from December 12, 2016. The x-rays show severe erosive arthropathy of both wrists with severe joint space narrowing and subchondral cyst formation bilaterally. Subluxation of the distal phalanx of the right thumb is also seen. Maikol is seen today in consultation at the request of Dr. Wilfrid Godfrey. Functional Status Date Functional Assessmen t No Information Instructions Date Instruction Additional Infor matlen No Information Assessments Type Assessment Date impression assessment Other specified arthritis, right wrist impression assessment Other specified arthritis, left wrist assessment Sprain of interphalangeal joint of right thumb, sequela impression We discussed treatme nt options for right thumb and/or both wrists. I offered cortisone injections, but Maikol declined. We also discussed splints, but he declined these as well. Definitive treatment for the right thumb interphalangeal joint instability would involve an arthrodesis of the interphalangeal joint. Definitive treatment for the left or right wrist psoriatic arthritis would also involve arthrodesis. We discussed these treatment options. For now, we are going to proceed with observation. Maikol may follow up as needed. He may also call with any questions or concerns. Patient Care Teams Name Effective Dates (start - stop) Status Members No Information
--- OUTSIDE RECORDS SUMMARY | 2021-01-31 04:00 | XMS_ITS | Continuity of Care Document ---
Author Organization [facility] Address [address] [place] [address] [place] [address] Phone Care Team Providers Care Infection Control Nurse Name Role Phone Janis Gutierrez PT Unavailable Unavailable Procedures Procedure Date Therapeutic Activities Neuromuscular Re-Ed Therapeutic Exercise Manual Therapy Progress Note Therapeutic Activities Neuromuscular Re-Ed Therapeutic Exercise Manual Therapy Therapeutic Activities Neuromuscular Re-Ed Therapeutic Exercise Manual Therapy Therapeutic Activities Neuromuscular Re-Ed Therapeutic Exercise Manual Therapy Progress Note Therapeutic Activities Neuromuscular Re-Ed Therapeutic Exercise Manual Therapy Neuromuscular Re-Ed Therapeutic Exercise Manual Therapy Therapeutic Activities Therapeutic Exercise Manual Therapy Therapeutic Activities Therapeutic Exercise Manual Therapy Therapeutic Exercise Manual Therapy Therapeutic Exercise Manual Therapy Therapeutic Activities Therapeutic Exercise Manual Therapy Therapeutic Activities Therapeutic Exercise Manual Therapy Therapeutic Activities Neuromuscular Re-Ed Therapeutic Exercise Manual Therapy PT Evaluation Moderate Complexity Therapeutic Activities Manual Therapy Advance Directives Directive Yes / No Effective Date File Name No Information Encounters Encounter Description Practice Location Reason(s) For Visit Diagnoses Date Provider Providers Copied on Encounter [facility] [employer] [facility], [place], [place], [id number], tel:[phone] [place] No Information 1 Garrels Janis. . [facility] [facility], [place], [place], [id number], tel:[phone] [place] No Information 1 Garrels Janis. . [facility] [facility] [address] [place] [address], [id number], tel:[phone] [place] No Information 1 Garrels Janis. . [facility] [facility] [address], [place], [place], [id number], tel:[phone] [place] No Information 1 Garrels Janis. . [facility] [facility] [address] [place] [address], [id number], tel:[phone] [place] No Information 1 Garrels Janis. . [facility] [facility] [address], [place], [place], [id number], tel:[phone] [place] No Information 0- 1 Garrels Janis. . [facility] [facility], [place], [place], [id number], tel:[phone] [place] No Information - 1 Garrels Janis. . [facility], [id number], tel:[phone] [place] No Information 1 Garrels Janis. . [facility], [id number], tel:[phone] [place] No Information 1 Garrels Janis. . [facility], [id number], tel:[phone] [place] No Information 1 Garrels Janis. . [facility], [id number], tel:[phone] [facility] No Information 1 Garrels Janis. . [facility], [id number], tel:[phone] [place] No Information 1 Garrels Janis. . [facility], [id number], tel:[phone] [place] No Information 1 Garrels Janis. . [facility], [id number], tel:[phone] [facility] No Information 1 Garrels Janis. . Family History Family Member Type Diagnosis Age At Onset No Information Payers Payer name Insurance type Covered green party ID Authoriza tion(s) Aetna Medicare Replacement CI [id number] Social History Type Description Quantity Date Captured Comments Sex Male Smoking Status No Information Chief Complaint And Reason For Visit No Information Reason For Referral Reason For Referral No Information History Of Present Illness Encounter Date Complaint History Of Prese nt Illness No Information Functional Status Date Functional Assessmen t No Information Instructions Date Instruction Additional Infor mation No Information Assessments Type Assessment Date No Information Patient Care Teams Name Effective Dates (start - stop) Status Members No Information
[2025-07-14 13:02] LABS: Hematocrit 45.3 % (42.0-52.0); Hemoglobin 15.4 g/dL (14.0-18.0); Immature Granulocyte Percent A 0.2 % (0-0.5); Lymphocytes Absolute Auto 2.10 K/mm3 (0.9-3.2); Mean Corpuscular HGB Conc 34.0 g/dl (32-36); Mean Corpuscular Hemoglobin 32.1 pg (26-34); Mean Corpuscular Volume 94.4 fl (80-100); Nucleated Red Blood Cells Absolute Auto 0.000 K/mm3 (0.0-0.012); Nucleated Red Blood Cells Perc 0.0 % (0.0-0.2); Platelet Count Result 315 k/mm3 (150-375); Red Blood Count 4.80 M/mm3 (4.6-6.20); White Blood Count 6.5 K/mm3 (4.5-10.0)
[2025-07-14 13:03] LABS: Alanine Aminotransferase 25 U/L (6-50); Albumin Level 4.4 g/dL (3.5-5.1); Alkaline Phosphatase 89 U/L (38-126); Anion Gap 7 mmol/L (4-12); Aspartate Amino Transferase 61 U/L (17-59); Bilirubin,Total 0.9 mg/dL (0.2-1.3); Blood Urea Nitrogen 18 mg/dL (9-20); Calcium 8.9 mg/dL (8.4-10.2); Carbon Dioxide 26 mmol/L (22-30); Chloride 104 mmol/L (98-107); Cholesterol 196 mg/dL (0-200); Estimated Glomerular Filt Rate > 60; Glucose 95 mg/dL (65-110); HDL Direct 60 mg/dL; Potassium 4.1 mmol/L (3.4-5.0); Sodium 137 mmol/L (137-145); Total Protein 8.7 g/dL (6.3-8.2); Triglycerides 100 mg/dL (<150)
[2025-07-14 13:59] LABS: Prostate Specific Antigen 0.8 ng/mL (< OR = 4.0); Thyroid Stimulating Hormone 2.710 uIU/mL (0.465-4.680)
[2025-07-14 14:10] LABS: Hemoglobin A1C 5.5 % (<5.7)
== END 2025-07-14 09:17 | disposition home or self-care (01) ==
PROVIDERS: PCP Clinical Nurse Specialist; Visit Provider Clinical Nurse Specialist
DX: Z12.5 Encounter for screening for malignant neoplasm of prostate (principal); E03.9 Hypothyroidism, unspecified; I10 Essential (primary) hypertension; K58.0 Irritable bowel syndrome with diarrhea; D64.9 Anemia, unspecified; R73.01 Impaired fasting glucose
CPT/HCPCS: 36415; 80053; 80061; 83036; 84153; 84443; 85025; G0103